=== PATIENT | male | born 1970 | race Caucasian/White ===

== ENCOUNTER 2017-05-14 07:24 | Emergency (ER) | payer OTHER ==
[~2017-05-14 07:24] MED LIST: ASPI81TA28 PO; GLIP10TA9 PO; LISI-729 PO; METF-383 PO; MTR400 PO; NICO14DI18 TD; OMEP40CA PO; OXYC-106 PO; SIMV20TA2 PO
[2017-05-14 07:27] VITALS: TEMP 36.6
--- NOTE | 2017-05-14 08:02 | EMERGENCY ROOM VISIT NOTE ---
ED Visit Note First contact with patient: 07:35 CHIEF COMPLAINT: Right middle finger laceration HISTORY OF PRESENT ILLNESS: This 46-year-old male patient presents to the emergency department approximately one hour after cutting the pad of the right middle finger while at work. The patient states he was rolling a door down on the back of a tractor trailer, when he got his finger caught under the door. He states he was wearing gloves, but when he noticed the finger gets stuck, he pulled it out. He denies any significant force from under the door applied, and does not have any deep, bony pain of the finger. The bleeding stopped shortly after the injury and there is no weakness or numbness of the area. Tetanus shot is up-to-date. Full range of motion of the finger. The patient denies any pain. REVIEW OF SYSTEMS: A 6 system review of systems was completed with positives and pertinent negatives listed in the HPI. ALLERGIES: None MEDICATIONS: Metformin, lisinopril, glipizide, Zocor, aspirin PMH: Diabetes SOCIAL HISTORY: The patient lives locally with family. He works for the [employer] at [employer]. He denies drug, alcohol use. He admits to using snuff. PHYSICAL EXAM: Vital Signs: Reviewed Nurse's notes, vital signs stable. GENERAL : This is a 46-year-old white male, in no acute distress, well-developed, well- nourished. SKIN: There is a 1 cm long partial avulsion on the distal anterior aspect of the right middle finger. It is superficial and the edges lie cleanly over the wound, but lay well without traction. There is no foreign material in the wound and it looks clean. There is no active bleeding. No deep structures such as tendons or nerves are seen in the base of the wound. Extension and flexion of the right middle finger is full and strong. Sensation to pain and light touch is intact. EMERGENCY DEPARTMENT COURSE: I examined the patient. Verbal consent was obtained to perform the procedure. The right middle finger was cleaned with betadine and sterile saline and there was no bleeding. The edges of the laceration were approximated and secured with 3 layers of Dermabond glue with good wound approximation. The patient tolerated the procedure well. The patient was discharged home in stable condition. I attest that I have personally reviewed the patient's current medication list. Patient was found to have normal blood pressure on screening and does not require follow-up. DIFFERENTIAL DIAGNOSIS: Avulsion, laceration, contusion, fracture, and others DIAGNOSIS: Partial avulsion of skin of right middle finger DISCHARGE INSTRUCTIONS & TREATMENT: Read DermaBond handout. Ice and elevate for swelling and pain. Ibuprofen 600 mg and Tylenol 1000 mg every 6 hrs for pain. Return for any signs of infection (increasing redness, swelling, drainage, fever ). Keep covered when in sun until fully healed then SPF 50 or higher for one year. Vitamin E oil if desired two weeks after fully healed for reduction of scar. Problem List Medical Problems: (1) Diabetes Status: Chronic (2) Dyslipidemia Status: Chronic (3) HTN (hypertension) Status: Chronic (4) Obesity Status: Chronic Current/Historical Medications Scheduled Aspirin (Aspirin Ec), 81 MG PO HS Glipizide (Glucotrol), 10 MG PO BID Lisinopril (Zestril), 5 MG PO HS Metformin Hcl (Glucophage), 850 MG PO TID Nicotine (Nicoderm Cq 14MG Patch), 1 PATCH TD DAILY Simvastatin (Zocor), 20 MG PO HS Allergies Coded Allergies: No Known Allergies (Unverified , 05/14/17) Vital Signs Date Time Temp Pulse Resp B/P (MAP) Pulse Ox O2 Delivery O2 Flow Rate FiO2 05/14/17 08:09 82 20 144/71 99 05/14/17 07:27 36.6 88 20 173/78 96 Room Air Departure Information Impression Primary Impression: Avulsion of skin of finger Dispostion Home / Self-Care Condition GOOD Referrals Florin Fletcher M.D. (PCP) Patient Instructions ED Laceration Ext Skin Glue, [facility] Additional Instructions You were seen in the ED today for partial avulsion of the skin of the right middle finger. This was repaired with Dermabond. Try to avoid getting the Dermabond wet for at least the first 2-3 days. Do not pick or pull at the skin glue. It will fall off on its own. When the glue falls off, perform regular wound care. Proper wound care is essential for adequate wound healing and infection prevention. You can shower and clean the wound with soap and water. Do not scour over the wound, pat dry with a towel. Do not submerse the wound (i.e. bathe or dish wash) until the wound has fully healed. You can use an antibiotic ointment with a dressing over the wound for the next 3-4 days. After this time you may leave the wound dry and open to the air. Ibuprofen(Motrin, Advil) may be used for fever or pain. Use 400mg every six hours as needed. Take with food. Avoid using more than 2400mg in a 24 hour period. Do not use 2400mg per day for more than three consecutive days without physician direction. Prolonged inappropriate use can lead to stomach upset or ulcers. (AND/OR) Acetaminophen(Tylenol) may be used for fever or pain. Use 500mg every six hours as needed. Avoid using more than 3000mg in a 24 hour period. Follow-up with your Worker's Compensation providers in 3-4 days for re- evaluation. Return to the ED for concerning redness, purulent drainage, fever, chills, nausea, vomiting, or other systemic symptoms. Problem Qualifiers Primary Impression: Avulsion of skin of finger Encounter type: initial encounter Qualified Codes: S61.209A - Unspecified open wound of unspecified finger without damage to nail, initial encounter
[2017-05-14 08:09] VITALS: BP 144/71; PULSE 82; O2SAT 99
== END 2017-05-14 08:12 | disposition home or self-care (01) ==
LOC: C.EDB 07:25 → C.EDA 08:12
DX: S61.209A Unspecified open wound of unspecified finger without damage to nail, initial encounter (principal); W23.1XXA Caught, crushed, jammed, or pinched between stationary objects, initial encounter; E11.9 Type 2 diabetes mellitus without complications; Z79.82 Long term (current) use of aspirin; F17.200 Nicotine dependence, unspecified, uncomplicated; E78.5 Hyperlipidemia, unspecified; I10 Essential (primary) hypertension; E66.9 Obesity, unspecified; Y99.0 Civilian activity done for income or pay